=== PATIENT | female | born 1960 | race African-American/Black ===

== ENCOUNTER 2016-07-09 14:04 | Inpatient (IN) | payer MEDICAID ==
[~2016-07-09] VITALS: Ht 160 cm; Wt 45.4 kg
[~2016-07-09 14:04] MED LIST: ACETAMINOPHEN325 MG NG; AMPICILLIN TRI500 MG PO; APAP325 MG PO; BISCOLAX10 MG/SUPP RC; CELEXA20 MG PO; CLEOCIN HCL300 MG PO; COLACE100 MG PO; DIFLUCAN200 MG PO; FLAGYL500 MG PO; FLORANEX / LACT1 TAB PO; IMODIUM A-D2 MG PO; KEFLEX500 MG PO; LEVAQUIN500 MG PO; MACROBID100 MG PO; MEGACE400 MG/10 PO; MICRO-K10 MEQ PO; MOTRIN400 MG PO; NORCO 5/325 TAB1 TA1 PO; NYSTATIN60 GM TP; OXYCODONE HCL10 MG; OXYCODONE HCL5 MG PO; PHENERGAN DM SYR5 ML PO; SLOW-MAG 64 MG64 MG PO; SOMA250 MG PO; TEFLARO600 MG IV; VENTOLIN HFA18 GM INH; XANAX0.5 MG PO; XOPENEX 1.1.25 MG/3 UPD
[2016-07-09] MEDS ORDERED: ZANAFLEX4 MG PO (21:46)
[2016-07-09] MEDS ORDERED: ZESTRIL40 MG PO (21:47)
[2016-07-09] MEDS ORDERED: BACLOFEN10 MG PO (21:49)
[2016-07-09] MEDS ORDERED: MEDROL DOSE PACK4 MG PO (21:49)
[2016-07-09] MEDS ORDERED: PROMETHAZINE W473 M1 PO (22:00)
[2016-07-09 23:34] VITALS: BP 102/773; BMI 17.7
--- NOTE | 2016-07-10 03:51 | NUR ---
ASSESSED AT THE TIME OF ADMIT TO FLOOR. FAMILY CAME UP TO SEE HER TUCKED IN AND THEN LEFT. SHE IS ALERT AND ORIENTED, ABLE TO VERBALIZE NEEDS. IV FLUIDS STARTED ORDERED. AND GROUNDS MAINTENANCE SUPERVISOR NOTIFIED OF NEED FOR TELEMETRY SOON ONE IS AVAIBLE. SKIN LOOKS GOOD EXCEPT FOR ONE AREA TO THE COCCYX THAT LOOKS HEALED FROM OLD BREAKDWON. ALL MEDS WERE GONE OVER AND SHE WAS OFFERED SCDS BUT TURNED THEN DOWN. SHE IS A PARAPLEGIC AMD WE ARE ASSISTING HER WITH TURNING AND COMFORT. SHE IS ABLE TO MOVE QUIET A BIT ON HER OWN. THE BED IS LOW, RAILS UP X'S 2 WITH THE CALL LIGHT AT HAND.
[2016-07-10 05:00] VITALS: BP 91/59
--- NOTE | 2016-07-10 08:15 | NUR ---
ASSESSMENT PER FLOW SHEET.PT WITHOUT DISTRESS.CALL LIGHT IN REACH.
[2016-07-10 08:34] VITALS: BP 97/62
--- NOTE | 2016-07-10 12:00 | NUR ---
REMAINS WITHOUT NEEDS,WITHOUT DISTRESS.CALL LIGHT IN REACH
[2016-07-10 12:21] VITALS: BP 110/74
[2016-07-10 13:13] LABS: BASOPHILS 0.2 % (0.0-2.0); EOSINOPHILS 0.3 % (0-7); HEMATOCRIT 34.9 % (36.0-48.0); HEMOGLOBIN 11.4 g/dL (12-16); IMMATURE GRANULOCYTES 0.7 % (0-5); LYMPHOCYTES 20.7 % (15-50); MCH 29.2 pg (26.0-34.0); MCHC 32.7 g/dL (31.0-37.0); MCV 89.3 fL (80.0-100.0); MEAN PLATELET VOLUME 9.9 fL (7.4-10.4); MONOCYTES 8.1 % (2-11); RBC 3.91 10x6/uL (4.00-5.40); RDW 15.3 % (11.5-14.5)
[2016-07-10 13:14] LABS: PLATELET COUNT 384 10x3/uL (130-400)
[2016-07-10 13:33] LABS: ALBUMIN 2.5 g/dL (3.4-5.0); ANION GAP 12.5 mmol/L (8-16); BILIRUBIN - TOTAL 0.31 mg/dL (0.2-1.3); CALCIUM 9.2 mg/dL (8.5-10.1); CARBON DIOXIDE 28.3 mmol/L (21.0-32.0); CREATININE - SERUM 0.9 mg/dL (0.6-1.3); POTASSIUM - SERUM 3.8 mmol/L (3.5-5.1); PROTEIN - SERUM 8.6 g/dL (6.4-8.2)
[2016-07-10 13:40] VITALS: Ht 160 cm; Wt 45.4 kg
--- NOTE | 2016-07-10 14:59 | NUR ---
PT TURNED TO CLEAN UP INCONT OF URINE. PRESSURE ULCER NOTED WITH OPEN AREA. PT STATES ATHIS IS LEFT OVER FROM OLD ULCER. WOUND CARE [place] CALLED.
--- NOTE | 2016-07-10 15:00 | NUR ---
WOUND CARE CONSULT: NOTED AN OLD STAGE 3 PRESSURE INJURY TO COCCYX. MEASURES 1CM X 1CM X 1CM. WOUND EDGES ARE WHITE AND ROLLED. WOUND BED IS PINK AND YELLOW. THERE IS NO ODOR. RECOMMEND LOOSELY PACKING WITH 1/4" PACKING DAMPENED WITH NORMAL SALINE. ALSO WOULD RECOMMEND AIR OVERLAY MATTRESS. WOUND CARE WILL CONTINUE TO MONITOR.
[2016-07-10 15:10] VITALS: BP 114/72
--- NOTE | 2016-07-10 17:00 | NUR ---
IV TENDER,DCD WITH CATH INTACT.SOME SWELLING AND MILD REDNESS NOTED.
--- NOTE | 2016-07-10 18:08 | NUR ---
REMAINS WITHOUT NEEDS,WITHOUT DISTRESS.CONT PLAN OF CARE
--- NOTE | 2016-07-10 18:30 | NUR ---
IV RESITED TO RIGHT HAND X1 STICK USING ASEPTIC TECH.TOLERATED WELL.
[2016-07-10 20:00] VITALS: BP 116/69
--- NOTE | 2016-07-10 20:07 | NUR ---
AWAKE ALERT. ORIENTED. NO COMPLAINTS VOICED. IV INFUSING TO RIGHT ARM WIHTOUT REDNESS OR EDEMA.CL IN REACH.
[2016-07-11] VITALS: BP 125/62
--- NOTE | 2016-07-11 01:15 | NUR ---
RESTING WITH EYES CLOSED, RESP WITH EASE, NO ACUTE DISTRESS NOTED, FALL PRECAUTIONS IN PLACE, CL IN REACH
--- NOTE | 2016-07-11 02:07 | NUR ---
RESTING QUIETLY. NO DISTRESS NOTED. CL IN REACH.
[2016-07-11 04:00] VITALS: BP 126/74
--- NOTE | 2016-07-11 05:07 | NUR ---
PT IS RESTING QUIET WITH NO DISTRESS NOTED. EASY RESPIRATIONS. SHE IS A PARAPLEGIC AND WE ARE TURNING HER PER PROTOCOL ALTHOUGH SHE CAN TURN HERSSELF MOST OF THE TIME. NO 02 NOTED AND IV SITE IS INFUSING ORDERED.
[2016-07-11 05:44] LABS: BASOPHILS 0.1 % (0.0-2.0); EOSINOPHILS 0.4 % (0-7); HEMOGLOBIN 10.3 g/dL (12-16); IMMATURE GRANULOCYTES 0.6 % (0-5); LYMPHOCYTES 15.4 % (15-50); MCH 28.8 pg (26.0-34.0); MCHC 32.2 g/dL (31.0-37.0); MCV 89.4 fL (80.0-100.0); MEAN PLATELET VOLUME 9.9 fL (7.4-10.4); MONOCYTES 7.9 % (2-11); NEUTROPHILS 75.6 % (40-80); PLATELET COUNT 426 10x3/uL (130-400); RBC 3.58 10x6/uL (4.00-5.40); RDW 15.2 % (11.5-14.5); WBC 11.8 10x3/uL (4.8-10.8)
--- NOTE | 2016-07-11 05:53 | NUR ---
AWAKE WITH NO COMPLAINTS. CL ILN REACH.
[2016-07-11 06:09] LABS: ALBUMIN 2.2 g/dL (3.4-5.0); ALKALINE PHOSPHATASE 100 U/L (46-116); ALT (SGPT) 28 U/L (10-68); BILIRUBIN - TOTAL 0.14 mg/dL (0.2-1.3); CALC OSMOLALITY 279 mosm/kg (275-300); CALCIUM 8.5 mg/dL (8.5-10.1); CARBON DIOXIDE 29.2 mmol/L (21.0-32.0); CHLORIDE - SERUM 102 mmol/L (98-107); CREATININE - SERUM 0.7 mg/dL (0.6-1.3); GLUCOSE 109 mg/dL (74-106); POTASSIUM - SERUM 4.3 mmol/L (3.5-5.1); PROTEIN - SERUM 6.8 g/dL (6.4-8.2); SODIUM 139 mmol/L (136-145); eGFR NON AFRICAN AMERICAN > 90 mL/min (90-120)
[2016-07-11 06:13] LABS: UREA NITROGEN 15 mg/dL (7-18)
--- NOTE | 2016-07-11 07:20 | NUR ---
PT SITTING IN BED TAKING A BREATHING TREATMENT, NO COMPLAINTS AT THIS TIME, BED LOWEST POSITION, CALL LIGHT IN REACH, WILL CONTINUE PLAN OF CARE
[2016-07-11 08:13] VITALS: BP 123/81
--- NOTE | 2016-07-11 08:47 | NUR ---
PT SEEN FOR ROCKET PROPELLANT PLANT SUPERVISOR NOTE. NO COMPLAINTS AT PRESENT. STATES BREATHING IS BETTER. LUNGS DIMINISHED BUT CLEAR. STATES WILL HAVE CAREGIVER BRING SELF CATHETERS FROM HOME AND WE WILL PROVIDE ASSISTANCE/URINAL FOR CATHERIZATION. DRESSING NOTED TO COCCYX-WILL CHANGE THIS AM. CALL LIGHT IN REACH
--- NOTE | 2016-07-11 12:16 | NUR ---
PT RESTING IN BED, NO COMPLAINTS, BED LOWEST POSITION, CALL LIGHT IN REACH, WILL CONTINUE TO MONITOR
[2016-07-11 12:26] VITALS: BP 93/55
[2016-07-11 15:24] LABS: APPEARANCE CLEAR (CLEAR); BACTERIA FEW /hpf (NONE SEEN); BILIRUBIN NEGATIVE (NEGATIVE); COLOR YELLOW (YELLOW); EPITHELIAL CELLS 0-5 /hpf (0-5); GLUCOSE NEGATIVE (NEGATIVE); KETONE NEGATIVE (NEGATIVE); LEUKOCYTE ESTERASE NEGATIVE (NEGATIVE); NITRITE NEGATIVE (NEGATIVE); PROTEIN NEGATIVE (NEGATIVE); RED CELLS - URINE 0-5 /hpf (0-5); UROBILINOGEN NORMAL (NORMAL); WHITE CELLS - URINE 0-5 /hpf (0-5)
[2016-07-11 16:02] VITALS: BP 165/92
--- NOTE | 2016-07-11 19:10 | NUR ---
OT NOTE: PT COMPLETED GROOMING TASK WITH MIN A. PT COMPLETED BED MOB WITH MIN A. PT ATTEMPTED FM COORDINATION AXS THANK YOU, DANAY NAJERA/Ana Paula
--- NOTE | 2016-07-11 20:00 | NUR ---
PT IS RESTING IN BED WITH EYES OPEN. ALERT AND ORIENTED X 3. PT DENIES ANY PAIN OR DISCOMFORT AT THIS TIME. NO SOB NOTED. PT IS VERY FRIENDLY AND COOPERATIVE. IV INFUSING TO RFA WITHOUT DIFFICULTY. NO REDNESS OR EDEMA NOTED AT THE INSERTION SITE. PT IS A PARAPLEGIC. DENIES NEEDS AT THIS TIME. BOB CATH PATENT AND DRAINING TO A GRAVITY BAG. DRESSING TO BUTTOCKS IS CDI. NO DRAINAGE NOTED. SR'S ARE UP X 3 IN BED. CALL LIGHT AND BEDSIDE TABLE ARE WITHIN EASY REACH.
--- NOTE | 2016-07-11 22:18 | NUR ---
PT IS RESTING IN BED WITH EYES CLOSED. RESPS ARE EVEN AND UNLABORED. NO ACUTE DISTRESS NOTED.
--- NOTE | 2016-07-11 23:58 | NUR ---
PT IS RESTING IN BED WITH EYES CLOSED.
--- NOTE | 2016-07-12 02:34 | NUR ---
PT RESTING IN BED WITH EYES CLOSED. NO DISTRESS NOTED.
--- NOTE | 2016-07-12 04:38 | NUR ---
PT IS RESTING QUIETLY IN BED WITH EYES CLOSED. NO DISTRESS NOTED.
[2016-07-12 06:43] LABS: BASOPHILS 0.3 % (0.0-2.0); EOSINOPHILS 0.5 % (0-7); HEMATOCRIT 32.7 % (36.0-48.0); HEMOGLOBIN 10.2 g/dL (12-16); IMMATURE GRANULOCYTES 0.5 % (0-5); LYMPHOCYTES 22.5 % (15-50); MCH 28.3 pg (26.0-34.0); MCHC 31.2 g/dL (31.0-37.0); MCV 90.8 fL (80.0-100.0); MEAN PLATELET VOLUME 9.8 fL (7.4-10.4); MONOCYTES 7.6 % (2-11); NEUTROPHILS 68.6 % (40-80); PLATELET COUNT 447 10x3/uL (130-400); RDW 15.5 % (11.5-14.5)
[2016-07-12 06:47] LABS: WBC 7.9 10x3/uL (4.8-10.8)
[2016-07-12 07:05] LABS: ALBUMIN 2.3 g/dL (3.4-5.0); ALKALINE PHOSPHATASE 87 U/L (46-116); ALT (SGPT) 24 U/L (10-68); CALCIUM 9.2 mg/dL (8.5-10.1); CARBON DIOXIDE 29.4 mmol/L (21.0-32.0); CHLORIDE - SERUM 103 mmol/L (98-107); CREATININE - SERUM 0.6 mg/dL (0.6-1.3); GLUCOSE 103 mg/dL (74-106); PROTEIN - SERUM 7.2 g/dL (6.4-8.2); SODIUM 140 mmol/L (136-145); eGFR NON AFRICAN AMERICAN > 90 mL/min (90-120)
[2016-07-12 07:06] LABS: CALC OSMOLALITY 276 mosm/kg (275-300); POTASSIUM - SERUM 3.6 mmol/L (3.5-5.1); UREA NITROGEN 6 mg/dL (7-18)
--- NOTE | 2016-07-12 07:15 | NUR ---
PATIENT IN BED WITH IV INTACT. NO COMPLAINTS. EYES CLOSED RESTING QUIETLY. CALL LIGHT WITHIN REACH.
--- NOTE | 2016-07-12 07:20 | NUR ---
PT RESTING IN BED, REQUEST PAIN MEDICATION, NO OTHER COMPLAINTS, BED LOWEST POSITION, CALL LIGHT IN REACH, SIDE RAILS UP X2, PT ASSESSMENT COMPLETE, WILL CONTINUE TO MONITOR
[2016-07-12 10:36] VITALS: BP 143/89
[2016-07-12 11:32] VITALS: BP 100/65
[2016-07-12 15:12] VITALS: BP 100/89
--- NOTE | 2016-07-12 18:09 | NUR ---
PT RESTING IN BED, NO COMPLAINTS AT THIS TIME, BED LOWEST POSITION, CALL LIGHT IN REACH, SIDE RAILS UP X2, WILL CONTINUE TO MONITOR
--- NOTE | 2016-07-12 19:30 | NUR ---
REC'D IN BED AWAKE AND ALERT. RESP EVEN AND UNLABORED WITH NO DISTRESS NOTED. CAN EXPRESS NEEDS AND WANTS. NO C/O NOTED OR VOICED. ASSESSMENT COMPLETED. C/L IN REACH AT BEDSIDE.
[2016-07-12 21:58] VITALS: BP 171/93
--- NOTE | 2016-07-13 02:15 | NUR ---
RESTING WITH EYES CLOSED, RESP WITH EASE, NO DISTRESS NOTED, FALL PRECAUTIONS IN PLACE, CL IN REACH
--- NOTE | 2016-07-13 03:40 | NUR ---
RESTING WELL AT THIS TIME. NO C/O NOTED OR VOICED. C/L IN REACH AT BEDSIDE.
[2016-07-13 05:00] VITALS: BP 89/64
[2016-07-13 05:55] LABS: BASOPHILS 0.3 % (0.0-2.0); EOSINOPHILS 0.9 % (0-7); HEMATOCRIT 39.1 % (36.0-48.0); IMMATURE GRANULOCYTES 0.4 % (0-5); LYMPHOCYTES 26.1 % (15-50); MCH 28.7 pg (26.0-34.0); MCHC 31.7 g/dL (31.0-37.0); MCV 90.5 fL (80.0-100.0); MEAN PLATELET VOLUME 9.7 fL (7.4-10.4); MONOCYTES 7.3 % (2-11); PLATELET COUNT 536 10x3/uL (130-400); RBC 4.32 10x6/uL (4.00-5.40); RDW 15.4 % (11.5-14.5); WBC 9.2 10x3/uL (4.8-10.8)
[2016-07-13 05:56] LABS: HEMOGLOBIN 12.4 g/dL (12-16)
[2016-07-13 06:32] LABS: ALKALINE PHOSPHATASE 101 U/L (46-116); BILIRUBIN - TOTAL 0.22 mg/dL (0.2-1.3); CALC OSMOLALITY 278 mosm/kg (275-300); CALCIUM 10.3 mg/dL (8.5-10.1); CARBON DIOXIDE 29.5 mmol/L (21.0-32.0); CHLORIDE - SERUM 101 mmol/L (98-107); CREATININE - SERUM 0.6 mg/dL (0.6-1.3); GLUCOSE 103 mg/dL (74-106); PROTEIN - SERUM 8.9 g/dL (6.4-8.2); SODIUM 141 mmol/L (136-145); UREA NITROGEN 7 mg/dL (7-18); eGFR NON AFRICAN AMERICAN > 90 mL/min (90-120)
[2016-07-13 06:34] LABS: ALT (SGPT) 36 U/L (10-68); POTASSIUM - SERUM 4.5 mmol/L (3.5-5.1)
--- NOTE | 2016-07-13 07:40 | NUR ---
PT RESTING IN BED, CAN EXPRESS CARES AND CONCERNS, NO CURRENT NEEDS, ASSESSMENT COMPLETE, CALL LIGHT IN REACH, WILL CONTINUE TO MONITOR
[2016-07-13 09:01] VITALS: BP 130/82
[2016-07-13 12:06] VITALS: BP 166/91
--- NOTE | 2016-07-13 13:29 | NUR ---
PAIN LEVEL AT 7, NORCO GIVEN PER MAR, NO OTHER COMPLAINTS OR NEEDS, WILL CONTINUE TO MONITOR.
--- NOTE | 2016-07-13 16:00 | NUR ---
QUIET IN ROOM AT PRESENT DENIES ANY NEEDS AT THIS TIME RESP EVEN AND UNLABORED AT PRESENT.
[2016-07-13 16:26] VITALS: BP 138/92
[2016-07-13 19:00] VITALS: BP 101/57
--- NOTE | 2016-07-13 19:36 | NUR ---
REC'D IN BED LYING ON RIGHT SIDE AWAKE AND ALERT. RESP EVEN AND UNLABORED WITH O2 IN USE VIA N/C. CAN EXPRESS NEEDS AND WANTS. NO C/O NOTED OR VOICED AT THIS TIME. TURN AND REPOSITION SELF AB JESI. REMAIN ON OVERLAY MATTRESS. ASSESSMENT COMPLETED. C/L IN REACH AT BEDSIDE.
[2016-07-14] VITALS: BP 105/74
--- NOTE | 2016-07-14 02:00 | NUR ---
PT IN BED WITH NO DISTRESS. RESPIRATIONS EVEN AND UNLABORED. RIGHT UPPER ARM IV WITH FLUIDS RUNNING PER ORDER. BOB DRAINING URINE BY GRAVITY. 1ST STEP OVERLAY ON BED. TELEMETRY ON. PLEXI BOOTS ON. PT HAS DRESSING TO COCCYX C/D/I. SIDE RAILS ARE UP X 2. BED IS LOW. CALL LIGHT IN REACH.
[2016-07-14 04:00] VITALS: BP 135/85
[2016-07-14 05:40] LABS: BASOPHILS 0.3 % (0.0-2.0); EOSINOPHILS 1.9 % (0-7); HEMATOCRIT 35.4 % (36.0-48.0); HEMOGLOBIN 11.4 g/dL (12-16); IMMATURE GRANULOCYTES 0.5 % (0-5); LYMPHOCYTES 31.9 % (15-50); MCH 28.9 pg (26.0-34.0); MCHC 32.2 g/dL (31.0-37.0); MCV 89.8 fL (80.0-100.0); MEAN PLATELET VOLUME 9.6 fL (7.4-10.4); MONOCYTES 8.8 % (2-11); NEUTROPHILS 56.6 % (40-80); PLATELET COUNT 506 10x3/uL (130-400); RBC 3.94 10x6/uL (4.00-5.40); RDW 15.5 % (11.5-14.5); WBC 7.5 10x3/uL (4.8-10.8)
[2016-07-14 06:03] LABS: ALBUMIN 2.6 g/dL (3.4-5.0); ALKALINE PHOSPHATASE 83 U/L (46-116); ALT (SGPT) 38 U/L (10-68); BILIRUBIN - TOTAL 0.18 mg/dL (0.2-1.3); CALC OSMOLALITY 277 mosm/kg (275-300); CALCIUM 9.3 mg/dL (8.5-10.1); CARBON DIOXIDE 27.1 mmol/L (21.0-32.0); CHLORIDE - SERUM 102 mmol/L (98-107); CREATININE - SERUM 0.6 mg/dL (0.6-1.3); GLUCOSE 102 mg/dL (74-106); POTASSIUM - SERUM 4.3 mmol/L (3.5-5.1); PROTEIN - SERUM 7.6 g/dL (6.4-8.2); SODIUM 140 mmol/L (136-145); eGFR NON AFRICAN AMERICAN > 90 mL/min (90-120)
[2016-07-14 06:26] LABS: UREA NITROGEN 11 mg/dL (7-18)
--- NOTE | 2016-07-14 07:40 | NUR ---
DENIES NEEDS AT PRESENT TIME. CALL LIGHT IN REACH. ALERT AND ORIENTED X4. RESPIRATIONS EVEN AND NON LABORED. WILL CONTINUE WITH PLAN OF CARE.
[2016-07-14 08:18] VITALS: BP 124/78
--- NOTE | 2016-07-14 09:05 | NUR ---
Patient Name: GAGE URRUTIA Admission Status: ER Accout number: [id number] Admission Date: 07-10-2016 : 1960 Admission Diagnosis: Attending: LASHAY Current LOS: 4 Anticipated DC Date: 07-16-2016 Planned Disposition: Home or Self Care Primary Insurance: MEDICAID [place] Discharge Planning Comments: CM MET WITH PATIENT REGARDING D/C NEEDS AND PLANS. PATIENT STATED SHE HAS A RAMP TO ENTER HER HOME AND NO STAIRS INSIDE. PATIENT STATED HER CAREGIVER WILL BE DRIVING HER HOME AT DISCHARGE. PATIENT STATED SHE IS INDEPENDENT WITH HER CARE AND HAS A TRANSFER BOARD, WHEELCHAIR, SHOWER CHAIR, AND NEBULIZER AT HOME. 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 PATIENTS PCP IS DR. ELLIS AND HER PHARMACY IS [facility] [address] [facility]. CM WILL CONTINUE TO FOLLOW PATIENT WITH D/C NEEDS AND PLANS. PCP DR[facility] [address] [facility] [phone] MARIE (SON) [phone] Sheet Sewer: Senia Warner Is the patient Alert and Oriented? Yes 0 * How many steps to enter\exit or inside your home? RAMP 0 * PCP DR. ELLIS 0 * [facility] * Preadmission Environment Home with Family 0 * ADLs Independent 0 * Equipment Nebulizer Shower Chair Wheelchair 0 * Other Equipment TRANSFER BOARD 0 * List name and contact numbers for known caregivers / representatives who currently or will assist patient after discharge: MARIE (SON) [phone] 0 * Community resources currently utilized Private Duty Care 0 * Additional services required to return to the preadmission environment? Yes 0 * Can the patient safely return to the preadmission environment? Yes 0 * Has this patient been hospitalized within the prior 30 days at any hospital? No 0 Grand Total: 0
--- NOTE | 2016-07-14 09:30 | NUR ---
SCHEDULED MEDICATIONS ADMINISTERED AT THIS TIME WELL PRN NORCO PER ORDER FOR PAIN 01/25. ASSESSMENT PERFORMED PER FLOWSHEET. CALL LIGHT IN REACH. 1ST STEP OVERLAY MATRESS IN USE. DENIES NEEDS AT PRESENT. WILL CONTINUE WITH PLAN OF CARE.
--- NOTE | 2016-07-14 12:25 | NUR ---
PT COMPLETED BOWEL REGIMEN AT THIS TIME. OXYGEN SATURATION 98% ON ROOM AIR. PT REQUESTING TO HAVE CATHETER REMOVED BEFORE BEING DISCHARGED HOME. CALL LIGHT IN REACH, STATES SHE HAS ALREADY HAD HER FLU AND PNEUMONIA VACCINES.
[2016-07-14 12:27] VITALS: BP 151/91
[2016-07-14] MEDS ORDERED: LEVAQUIN500 MG PO (13:19)
--- NOTE | 2016-07-14 13:20 | NUR ---
CM REASSESSMENT NOTE: PATIENT IS DISCHARGING HOME TODAY AND PATIENT STATED HER CAR STOWER WILL DRIVE HER HOME. PATIENT SIGNED THE [place] FORM FOR [facility] AND REFERRAL HAS BEEN SENT. [facility] IS AWARE OF PATIENTS DISCHARGE TODAY.
--- NOTE | 2016-07-14 14:20 | NUR ---
PRN NORCO-5 2 TABS ADMINISTERED PER ORDER. BOB CATHETER D/C WITH CATH TIP INTACT. WOUND CARE PROVIDED TO STAGE II COCCYX. AWAITING RIDE TO D/C, WILL CONTINUE WITH PLAN OF CARE.
--- NOTE | 2016-07-14 15:10 | NUR ---
D/C HOME WITH SON AT THIS TIME. DENIES QUESTIONS OR CONCERNS. WILL CONTINUE WITH PLAN OF CARE.
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
--- NOTE | 2016-08-25 09:38 | DS ---
PATIENT:GAGE URRUTIA :56 MEDICAL RECORD: [id number] DISCHARGE SUMMARY ADMISSION DATE: 07/10/16 DISCHARGE DATE: 07/14/16 This is a discharge dated 07/14/2016 from the inpatient hospital. DISCHARGE DIAGNOSES: 1. Left lower lobe pneumonia, community-acquired. 2. Acute exacerbation of chronic obstructive pulmonary disease. 3. Pleural effusion. 4. Tobacco abuse. 5. Paraplegia. 6. Hypertension. 7. Hyperlipidemia. 8. Asthma. CONSULTS THIS HOSPITALIZATION: Pulmonary with Dr. Bolden. HOSPITAL COURSE: Full H&P is located elsewhere on the chart on this 56-year-old female, who was admitted with complaints of shortness of breath, cough and fever. Imaging was consistent with a left lower lobe pneumonia. Pulmonary was consulted. She was seen by Dr. Bolden. She was started on nebulized medications and continued on her inhalers from home. She was started on antibiotics with Rocephin and azithromycin. Cultures were done. She had an incentive spirometer and flutter valve for secretion clearance. Imaging was monitored with labs during her hospital stay. Electrolytes were managed by protocol. She was hemodynamically stable with improvement in the left lower lobe pneumonia, symptoms improved. She was considered stable for discharge on 07/14/2016. DISCHARGE MEDICATIONS: As per discharge medication reconciliation. DISCHARGE DISPOSITION: The patient is discharged home. She will continue her current diet and level of activity. She will follow up with primary care in 1 week. She will have home health for group home care and wound care. She will follow up with pulmonary in 4 weeks with a chest x-ray. a Vicente catheter was discontinued prior to discharge. At least 30 minutes was spent in this discharge activity. TRANSINT:[id number] Voice Confirmation ID: [id number] DOCUMENT ID: [id number] Dictated By: RAFAEL ADLER I have interviewed/examined the above patient and agree with these documented findings. MARY VAZQUEZ MD at 0938 at 0939 CC: [id number] DICTATION DATE: 08/23/16 1115 MACADAM RAKER: 08/23/162016 DIS IN 07/14/16 [place] [id number]
== END 2016-07-14 15:10 | disposition home health service (06) | DRG 190 ==
LOC: D.ER 14:04 → OBSVTIME 18:26 → D.MS 18:26
PROVIDERS: ADMIT Family Medicine
DX: J44.0 Chronic obstructive pulmonary disease with (acute) lower respiratory infection (principal); J18.9 Pneumonia, unspecified organism; J90 Pleural effusion, not elsewhere classified; F17.203 Nicotine dependence unspecified, with withdrawal; J44.1 Chronic obstructive pulmonary disease with (acute) exacerbation; M62.3 Immobility syndrome (paraplegic); I10 Essential (primary) hypertension; J45.909 Unspecified asthma, uncomplicated; E78.5 Hyperlipidemia, unspecified

== ENCOUNTER 2016-11-21 10:38 | Emergency (ER) | payer MEDICAID ==
[2016-07-10 13:40] VITALS: BMI 17.7
[~2016-11-21 10:38] MED LIST changes: +BACLOFEN10 MG PO; +MEDROL DOSE PACK4 MG PO; +PROMETHAZINE W473 M1 PO; +ZANAFLEX4 MG PO; +ZESTRIL40 MG PO
[2016-11-21 11:43] LABS: BASOPHILS 0.2 % (0-2); EOSINOPHILS 3.5 % (0-7); HEMATOCRIT 42.3 % (36.0-48.0); IMMATURE GRANULOCYTES 0.2 % (0-5); LYMPHOCYTES 38.5 % (15-50); MCH 29.5 pg (26.0-34.0); MCHC 33.1 g/dL (31.0-37.0); MCV 89.2 fL (80.0-100.0); MEAN PLATELET VOLUME 10.9 fL (7.4-10.4); MONOCYTES 6.4 % (2-11); NEUTROPHILS 51.2 % (40-80); RBC 4.74 10x6/uL (4.00-5.40); RDW 14.1 % (11.5-14.5); WBC 6.5 10x3/uL (4.8-10.8)
[2016-11-21 11:53] LABS: ALBUMIN 3.9 g/dL (3.4-5.0); ALKALINE PHOSPHATASE 86 U/L (46-116); ALT (SGPT) 22 U/L (10-68); CALC OSMOLALITY 277 mosm/kg (275-300); CALCIUM 9.4 mg/dL (8.5-10.1); CARBON DIOXIDE 31.6 mmol/L (21.0-32.0); CHLORIDE - SERUM 102 mmol/L (98-107); CREATININE - SERUM 0.6 mg/dL (0.6-1.3); GLUCOSE 92 mg/dL (74-106); POTASSIUM - SERUM 3.6 mmol/L (3.5-5.1); PROTEIN - SERUM 7.7 g/dL (6.4-8.2); SODIUM 140 mmol/L (136-145); UREA NITROGEN 11 mg/dL (7-18); eGFR NON AFRICAN AMERICAN > 90 mL/min (90-120)
[2016-11-21 11:55] LABS: LIPASE 133 U/L (73-393); PLATELET COUNT 221 10x3/uL (130-400)
[2016-11-21 11:59] LABS: TROPONIN-I < 0.017 ng/mL (0.000-0.060)
[2016-11-21 12:18] LABS: APPEARANCE HAZY (CLEAR); BACTERIA FEW /hpf (NONE SEEN); BILIRUBIN NEGATIVE (NEGATIVE); COLOR YELLOW (YELLOW); EPITHELIAL CELLS RARE /hpf (0-5); GLUCOSE NEGATIVE (NEGATIVE); KETONE NEGATIVE (NEGATIVE); LEUKOCYTE ESTERASE NEGATIVE (NEGATIVE); NITRITE NEGATIVE (NEGATIVE); PROTEIN NEGATIVE (NEGATIVE); UROBILINOGEN NORMAL (NORMAL)
== END 2016-11-21 17:29 | disposition home or self-care (01) ==
LOC: D.ER 10:38
PROVIDERS: Emergency Medicine
DX: R10.9 Unspecified abdominal pain (principal); K59.00 Constipation, unspecified; J44.9 Chronic obstructive pulmonary disease, unspecified; F17.200 Nicotine dependence, unspecified, uncomplicated

== ENCOUNTER 2017-02-11 18:36 | Emergency (ER) | payer MEDICAID ==
[2016-07-10 13:40] VITALS: BMI 17.7
[2017-02-11 20:05] LABS: APPEARANCE CLOUDY (CLEAR); BILIRUBIN NEGATIVE (NEGATIVE); COLOR YELLOW (YELLOW); GLUCOSE NEGATIVE (NEGATIVE); KETONE NEGATIVE (NEGATIVE); LEUKOCYTE ESTERASE TRACE (NEGATIVE); NITRITE POSITIVE (NEGATIVE); PROTEIN NEGATIVE (NEGATIVE); SPECIFIC GRAVITY 1.015 (1.005-1.020); UROBILINOGEN NORMAL (NORMAL)
[2017-02-11 20:06] LABS: BACTERIA MANY /hpf (NONE SEEN); RED CELLS - URINE 0-5 /hpf (0-5); WHITE CELLS - URINE 0-5 /hpf (0-5)
== END 2017-02-11 21:44 | disposition home or self-care (01) ==
LOC: D.ER 18:36
PROVIDERS: Emergency Medicine
DX: N39.0 Urinary tract infection, site not specified (principal); G82.20 Paraplegia, unspecified; F17.200 Nicotine dependence, unspecified, uncomplicated

== ENCOUNTER 2017-02-27 19:09 | Emergency (ER) | payer MEDICAID ==
[2016-07-10 13:40] VITALS: BMI 17.7
[~2017-02-27 19:09] MED LIST changes: +K-TAB10 MEQ PO; -MICRO-K10 MEQ PO
[2017-02-27 20:12] LABS: BASOPHILS 0.5 % (0-2); HEMATOCRIT 45.6 % (36.0-48.0); IMMATURE GRANULOCYTES 0.2 % (0-5); LYMPHOCYTES 46.3 % (15-50); MCH 30.5 pg (26.0-34.0); MCHC 32.9 g/dL (31.0-37.0); MCV 92.9 fL (80.0-100.0); MEAN PLATELET VOLUME 11.4 fL (7.4-10.4); MONOCYTES 9.3 % (2-11); NEUTROPHILS 37.7 % (40-80); PLATELET COUNT 228 10x3/uL (130-400); RBC 4.91 10x6/uL (4.00-5.40); WBC 6.1 10x3/uL (4.8-10.8)
[2017-02-27 20:19] LABS: APPEARANCE CLEAR (CLEAR); BILIRUBIN NEGATIVE (NEGATIVE); COLOR STRAW (YELLOW); GLUCOSE NEGATIVE (NEGATIVE); KETONE NEGATIVE (NEGATIVE); NITRITE NEGATIVE (NEGATIVE); PROTEIN NEGATIVE (NEGATIVE); SPECIFIC GRAVITY 1.005 (1.005-1.020); UROBILINOGEN NORMAL (NORMAL)
[2017-02-27 20:20] LABS: ALKALINE PHOSPHATASE 75 U/L (46-116); ALT (SGPT) 24 U/L (10-68); AMYLASE - SERUM 62 U/L (25-115); CALC OSMOLALITY 281 mosm/kg (275-300); CALCIUM 9.6 mg/dL (8.5-10.1); CARBON DIOXIDE 30.7 mmol/L (21.0-32.0); CHLORIDE - SERUM 102 mmol/L (98-107); CREATININE - SERUM 0.8 mg/dL (0.6-1.3); GLUCOSE 95 mg/dL (74-106); LIPASE 136 U/L (73-393); POTASSIUM - SERUM 4.2 mmol/L (3.5-5.1); SODIUM 140 mmol/L (136-145); UREA NITROGEN 21 mg/dL (7-18); eGFR NON AFRICAN AMERICAN 78 mL/min (90-120)
[2017-02-27 20:23] LABS: BACTERIA FEW /hpf (NONE SEEN); EPITHELIAL CELLS 0-5 /hpf (0-5)
== END 2017-02-27 21:35 | disposition home or self-care (01) ==
LOC: D.ER 19:09
PROVIDERS: Family Medicine
DX: N39.0 Urinary tract infection, site not specified (principal)

== ENCOUNTER 2017-03-04 10:26 | Day surgery (SDC) | payer MEDICAID ==
[2017-03-04 11:36] VITALS: BP 134/89; BMI 21.3
[2017-03-04 12:53] LABS: HEMATOCRIT 39.1 % (36.0-48.0); MCH 30.2 pg (26.0-34.0); MCHC 33.2 g/dL (31.0-37.0); MCV 90.9 fL (80.0-100.0); RBC 4.3 10x6/uL (4.00-5.40); RDW 13.7 % (11.5-14.5)
[2017-03-04 13:13] LABS: CALC OSMOLALITY 281 mosm/kg (275-300); CALCIUM 9.5 mg/dL (8.5-10.1); CARBON DIOXIDE 29.3 mmol/L (21.0-32.0); CHLORIDE - SERUM 103 mmol/L (98-107); CREATININE - SERUM 0.5 mg/dL (0.6-1.3); GLUCOSE 102 mg/dL (74-106); POTASSIUM - SERUM 3.2 mmol/L (3.5-5.1); SODIUM 141 mmol/L (136-145); UREA NITROGEN 15 mg/dL (7-18); eGFR NON AFRICAN AMERICAN > 90 mL/min (90-120)
--- NOTE | 2017-03-04 14:11 | NUR ---
POOR PREP WENT TO ASCENDING COLON DID NOT GO TO [facility] WILL CHARGE FOR COLONOSCOPY WITH REDUCTION PER DR. MUHAMMAD.
--- NOTE | 2017-03-04 15:29 | NUR ---
1500--IV DC'D, PT DRESSING WITH ASSISTANCE. MARCELLE VERONICA [id number]--DISCHARGE INSTRUCTIONS GIVEN, PT VERBALIZES UNDERSTANDING. PT OFF UNIT VIA WC WITH SON. MARCELLE VERONICA
--- NOTE | 2017-03-06 13:53 | OP ---
PATIENT NAME: GAGE URRUTIA MEDICAL RECORD: [id number] :56 LOCATION:[facility] ADMISSION DATE: SURGEON: GERMANIA MUHAMMAD DO DATE OF OPERATION: 03/04/2017 PROCEDURE: Colonoscopy. INDICATIONS FOR PROCEDURE: Left lower quadrant and right lower quadrant abdominal pain as well as constipation, hematochezia, and abnormal weight loss. These indications are from an office visit in August of 2015. Currently, she states that she has a little bit of left lower quadrant pain and her bowels are regular. Previous to her recent improvement in bowels, she has been somewhat constipation. SCOPE: Whisk video pediatric colonoscope. MEDICATIONS: Propofol 550 mg IV per anesthesia. ESTIMATED BLOOD LOSS: None. COMPLICATIONS: None. FINDINGS: Informed consent was given. The patient was made comfortable with the above medication. After reaching an adequate level of sedation by slow IV push, the patient was placed on her left side. A digital rectal examination was performed and was normal. The endoscope was then advanced under direct visualization through the rectum to the ascending colon. The cecum could not be reached due to [id number] visualization in the ascending colon due to an inadequate prep. The scope was slowly withdrawn and the mucosa was carefully examined. From what mucosa could be visualized, there were no polyps or other abnormalities. There were no diverticula visualized. Retroflexion was not performed in the rectum. The scope was withdrawn from the patient. The patient tolerated the procedure well, and there were no complications. IMPRESSION: Incomplete colonoscopy due to an inadequate prep. PLAN AND RECOMMENDATIONS: 1. Discharge home when recovery parameters are met. 2. High fiber diet. 3. Continue current medications. 4. Anticipate the patient's left lower quadrant pain is secondary to constipation and slow transit of stools possibly related to nerve damage, which could complicate this condition. I would recommend maintaining high fiber diet and supplementing her diet with Metamucil 1-2 tablespoons daily. We can plan for a repeat colonoscopy at the patient's convenience. She will need a prolonged preparation consisting of 2 days of clear liquids and possibly a double prep as the split-dose Suprep had no effect on her bowel. TRANSINT:[id number] Voice Confirmation ID: [id number] DOCUMENT ID: [id number] OPERATIVE REPORT [id number] GAGE URRUTIA GERMANIA MUHAMMAD DO at 1353 CC: [id number] DICTATION DATE: 03/04/17 1421 ASSOCIATE MEDICAL DIRECTOR: 03/04/[address] [facility] 03/04/17 [facility] [address] [place] [address]
== END 2017-03-04 15:20 | disposition home or self-care (01) ==
LOC: D.OPS 10:26
PROVIDERS: Anesthesiology
DX: R10.9 Unspecified abdominal pain (principal); K92.1 Melena; I10 Essential (primary) hypertension; J44.9 Chronic obstructive pulmonary disease, unspecified; J45.909 Unspecified asthma, uncomplicated; Z01.812 Encounter for preprocedural laboratory examination

== ENCOUNTER 2017-04-20 17:42 | Emergency (ER) | payer MEDICAID ==
[2017-04-20 18:27] LABS: BASOPHILS 0.1 % (0-2); EOSINOPHILS 2.3 % (0-7); HEMATOCRIT 39.7 % (36.0-48.0); HEMOGLOBIN 13.4 g/dL (12-16); IMMATURE GRANULOCYTES 0.1 % (0-5); LYMPHOCYTES 36.5 % (15-50); MCH 30.2 pg (26.0-34.0); MCHC 33.8 g/dL (31.0-37.0); MCV 89.4 fL (80.0-100.0); MEAN PLATELET VOLUME 9.9 fL (7.4-10.4); MONOCYTES 9.8 % (2-11); NEUTROPHILS 51.2 % (40-80); PLATELET COUNT 264 10x3/uL (130-400); RBC 4.44 10x6/uL (4.00-5.40); RDW 14.1 % (11.5-14.5); WBC 7.4 10x3/uL (4.8-10.8)
[2017-04-20 18:44] LABS: ALBUMIN 3.7 g/dL (3.4-5.0); ALKALINE PHOSPHATASE 71 U/L (46-116); ALT (SGPT) 23 U/L (10-68); BILIRUBIN - TOTAL 0.28 mg/dL (0.2-1.3); CALC OSMOLALITY 276 mosm/kg (275-300); CALCIUM 9.4 mg/dL (8.5-10.1); CARBON DIOXIDE 28.9 mmol/L (21.0-32.0); CHLORIDE - SERUM 100 mmol/L (98-107); CREATININE - SERUM 0.6 mg/dL (0.6-1.3); GLUCOSE 103 mg/dL (74-106); POTASSIUM - SERUM 3.1 mmol/L (3.5-5.1); PROTEIN - SERUM 7.7 g/dL (6.4-8.2); SODIUM 137 mmol/L (136-145); UREA NITROGEN 20 mg/dL (7-18); eGFR NON AFRICAN AMERICAN > 90 mL/min (90-120)
[2017-04-20 18:55] LABS: APPEARANCE HAZY (CLEAR); BACTERIA MODERATE /hpf (NONE SEEN); BILIRUBIN NEGATIVE (NEGATIVE); COLOR YELLOW (YELLOW); GLUCOSE NEGATIVE (NEGATIVE); KETONE NEGATIVE (NEGATIVE); MUCUS <1+ /lpf (NONE SEEN); NITRITE POSITIVE (NEGATIVE); PROTEIN NEGATIVE (NEGATIVE); RED CELLS - URINE 0-5 /hpf (0-5); SPECIFIC GRAVITY 1.015 (1.005-1.020); UROBILINOGEN NORMAL (NORMAL)
== END 2017-04-20 21:18 | disposition home or self-care (01) ==
LOC: D.ER 17:42
PROVIDERS: Emergency Medicine
DX: R10.32 Left lower quadrant pain (principal); N39.0 Urinary tract infection, site not specified; E87.6 Hypokalemia; G82.20 Paraplegia, unspecified; F17.200 Nicotine dependence, unspecified, uncomplicated

== ENCOUNTER → 2017-04-29 10:27 | Outpatient (CLI) | payer MEDICAID | END | disposition home or self-care (01) | LOC: D.RAD 10:27 | DX: K59.01 Slow transit constipation (principal) ==

== ENCOUNTER 2017-07-09 13:18 | Emergency (ER) | payer MEDICAID ==
[2017-07-09 13:51] LABS: BASOPHILS 0.2 % (0-2); EOSINOPHILS 2.7 % (0-7); HEMOGLOBIN 13.8 g/dL (12-16); IMMATURE GRANULOCYTES 0.2 % (0-5); LYMPHOCYTES 33.8 % (15-50); MCH 30.3 pg (26.0-34.0); MCHC 32.9 g/dL (31.0-37.0); MCV 92.3 fL (80.0-100.0); MEAN PLATELET VOLUME 10.3 fL (7.4-10.4); MONOCYTES 9.5 % (2-11); NEUTROPHILS 53.6 % (40-80); PLATELET COUNT 255 10x3/uL (130-400); RBC 4.55 10x6/uL (4.00-5.40); WBC 4.7 10x3/uL (4.8-10.8)
[2017-07-09 14:16] LABS: ALBUMIN 3.9 g/dL (3.4-5.0); ALKALINE PHOSPHATASE 75 U/L (46-116); ALT (SGPT) 24 U/L (10-68); BILIRUBIN - TOTAL 0.56 mg/dL (0.2-1.3); CALC OSMOLALITY 278 mosm/kg (275-300); CALCIUM 9.4 mg/dL (8.5-10.1); CARBON DIOXIDE 30.9 mmol/L (21.0-32.0); CHLORIDE - SERUM 101 mmol/L (98-107); CREATININE - SERUM 0.5 mg/dL (0.6-1.3); GLUCOSE 100 mg/dL (74-106); POTASSIUM - SERUM 3.6 mmol/L (3.5-5.1); PROTEIN - SERUM 7.4 g/dL (6.4-8.2); SODIUM 140 mmol/L (136-145); UREA NITROGEN 12 mg/dL (7-18); eGFR NON AFRICAN AMERICAN > 90 mL/min (90-120)
[2017-07-09 14:42] LABS: APPEARANCE CLEAR (CLEAR); BILIRUBIN NEGATIVE (NEGATIVE); COLOR YELLOW (YELLOW); GLUCOSE NEGATIVE (NEGATIVE); KETONE NEGATIVE (NEGATIVE); NITRITE NEGATIVE (NEGATIVE); PROTEIN NEGATIVE (NEGATIVE); UROBILINOGEN NORMAL (NORMAL)
[2017-07-09 14:43] LABS: BACTERIA FEW /hpf (NONE SEEN)
== END 2017-07-09 16:20 | disposition home or self-care (01) ==
LOC: D.ER 13:18
PROVIDERS: Emergency Medicine
DX: K59.00 Constipation, unspecified (principal); F17.200 Nicotine dependence, unspecified, uncomplicated

== ENCOUNTER → 2017-11-02 08:36 | Outpatient (CLI) | payer MEDICAID ==
[~2017-11-02 08:36] MED LIST changes: +ATIVAN1 MG PO; +BENTYL 20 MG TA20 MG PO; +HYDROCODONE-APA1 TAB PO; -NORCO 5/325 TAB1 TA1 PO
== END | disposition home or self-care (01) ==
LOC: D.CT 08:30
DX: R93.8 Abnormal findings on diagnostic imaging of other specified body structures (principal)

== ENCOUNTER 2017-11-04 10:59 | Day surgery (SDC) | payer MEDICAID ==
[~2017-11-04] VITALS: Ht 160 cm; Wt 45.0 kg
--- NOTE | ~2017-11-04 | OP ---
PATIENT NAME: GAGE URRUTIA MEDICAL RECORD: [id number] :56 LOCATION:D.OPS ADMISSION DATE: SURGEON: GERMANIA MUHAMMAD DO DATE OF OPERATION: 11/04/2017 PROCEDURE: Colonoscopy with polypectomy and biopsies. INDICATIONS FOR PROCEDURE: Fecal occult blood positive. SCOPE: Olympus video pediatric colonoscope. MEDICATIONS: Propofol 500 mg IV per anesthesia. WITHDRAWAL TIME: 19 minutes. ESTIMATED BLOOD LOSS: Minimal. COMPLICATIONS: None. FINDINGS: Informed consent was given. The patient was made comfortable with the above medication. After reaching an adequate level of sedation by slow IV push, the patient was placed on her left side. A digital rectal examination was performed. The examination itself was normal involving the rectum, but there was a wound superior to the rectum that was open. There did not appear to be active infection involving the wound. The endoscope was advanced under direct visualization through the rectum to the cecum, confirmed by the presence of the appendiceal orifice and ileocecal valve. The endoscope was slowly withdrawn and mucosa was carefully examined. The prep quality was good. There were multiple polyps visualized on today's examination. The first was located in the transverse colon. There was a benign appearing sessile polyp, which measured approximately 4 mm in diameter. It was removed using hot forceps in 1 piece and completely retrieved. The next polyp was located in the descending colon. It was a benign appearing sessile polyp, which measured approximately 8-9 mm in diameter. It was removed using a hot snare in 1 piece and completely retrieved. In the sigmoid colon, there were two separate polyps. The first was a benign appearing sessile polyp, which measured approximately 3 mm in diameter. It was removed using hot forceps in 1 piece and completely retrieved. A second polyp was a larger polyp which measured approximately 6-7 mm in diameter. It was removed using hot snare in 1 piece and completely retrieved. On retroflexion in the rectum, there was a polypoid lesion, which could be an inflammatory type polyp. It was removed using hot forceps in 1 piece and completely retrieved. There were no diverticula visualized on today's examination. In the rectum, there were some inflammatory changes consisting of some erythema and some granularity as well as a few small ulcerations which could be related to constipation as they appeared consistent with stercoral injury. A few biopsies were taken with cold forceps in the rectum. Also, on retroflexion, there was visualization of grade I nonbleeding internal hemorrhoids. The endoscope was withdrawn from the patient. The patient tolerated the procedure well and there were no complications. IMPRESSION: 1. Multiple polyps as described above, removed using a combination of hot forceps and a hot snare. 2. 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 3. Small internal hemorrhoids. OPERATIVE REPORT [id number] GAGE URRUTIA PLAN AND RECOMMENDATIONS: 1. Discharge home when recovery parameters are met. 2. Follow up biopsy specimen results. 3. High fiber diet. 4. Continue current medications including supplementation of diet with Metamucil 2 tablespoons daily, MiraLax daily. 5. We will provide a prescription for Linzess 145 mcg daily. 6. Recommend a repeat colonoscopy in 2-3 years for continued surveillance of polyps. TRANSINT:[id number] Voice Confirmation ID: [id number] DOCUMENT ID: [id number] GERMANIA MUHAMMAD DO at 1326 CC: [id number] DICTATION DATE: 11/04/17 1502 LOCKSTITCH SLEEVE SETTER: 11/04/17 [address] [facility] 11/04/17 [place] [id number] [place] [address]
[~2017-11-04 10:59] MED LIST changes: -ATIVAN1 MG PO; -BENTYL 20 MG TA20 MG PO
[2017-11-04 11:28] LABS: HEMATOCRIT 37.9 % (36.0-48.0); HEMOGLOBIN 12.5 g/dL (12-16); MCV 90.9 fL (80.0-100.0); MEAN PLATELET VOLUME 10.3 fL (7.4-10.4); RBC 4.17 10x6/uL (4.00-5.40); RDW 14.1 % (11.5-14.5); WBC 6.2 10x3/uL (4.8-10.8)
[2017-11-04] MEDS ORDERED: ATIVAN1 MG PO (12:55)
[2017-11-04 13:03] VITALS: Ht 160 cm; Wt 45.0 kg
== END 2017-11-04 16:10 | disposition home or self-care (01) ==
LOC: D.OPS 10:59
PROVIDERS: Anesthesiology
DX: D12.4 Benign neoplasm of descending colon (principal); D12.5 Benign neoplasm of sigmoid colon; D12.3 Benign neoplasm of transverse colon; K62.89 Other specified diseases of anus and rectum; D12.8 Benign neoplasm of rectum; K64.0 First degree hemorrhoids; Z01.812 Encounter for preprocedural laboratory examination

== ENCOUNTER 2017-12-11 16:55 | Emergency (ER) | payer MEDICAID ==
[~2017-12-11] VITALS: Ht 160 cm; Wt 45.0 kg
[~2017-12-11 16:55] MED LIST changes: +ATIVAN1 MG PO
[2017-12-11 17:15] VITALS: Ht 160 cm; Wt 45.0 kg
[2017-12-11 18:16] LABS: ALBUMIN 3.8 g/dL (3.4-5.0); ALKALINE PHOSPHATASE 75 U/L (46-116); ALT (SGPT) 26 U/L (10-68); AMYLASE - SERUM 55 U/L (25-115); BASOPHILS 0.2 % (0-2); BILIRUBIN - TOTAL 0.37 mg/dL (0.2-1.3); CALC OSMOLALITY 282 mosm/kg (275-300); CALCIUM 8.9 mg/dL (8.5-10.1); CARBON DIOXIDE 27.3 mmol/L (21.0-32.0); CHLORIDE - SERUM 104 mmol/L (98-107); CREATININE - SERUM 0.5 mg/dL (0.6-1.3); EOSINOPHILS 1.5 % (0-7); GLUCOSE 97 mg/dL (74-106); HEMATOCRIT 41.3 % (36.0-48.0); HEMOGLOBIN 13.8 g/dL (12-16); IMMATURE GRANULOCYTES 0.2 % (0-5); LIPASE 178 U/L (73-393); LYMPHOCYTES 35.7 % (15-50); MCH 29.9 pg (26.0-34.0); MCHC 33.4 g/dL (31.0-37.0); MCV 89.4 fL (80.0-100.0); MEAN PLATELET VOLUME 11.1 fL (7.4-10.4); NEUTROPHILS 53.4 % (40-80); PLATELET COUNT 217 10x3/uL (130-400); POTASSIUM - SERUM 3.5 mmol/L (3.5-5.1); PROTEIN - SERUM 7.1 g/dL (6.4-8.2); RBC 4.62 10x6/uL (4.00-5.40); RDW 14.2 % (11.5-14.5); SODIUM 141 mmol/L (136-145); UREA NITROGEN 17 mg/dL (7-18); WBC 6.1 10x3/uL (4.8-10.8); eGFR NON AFRICAN AMERICAN > 90 mL/min (90-120)
[2017-12-11 18:51] LABS: APPEARANCE HAZY (CLEAR); BILIRUBIN NEGATIVE (NEGATIVE); COLOR YELLOW (YELLOW); GLUCOSE NEGATIVE (NEGATIVE); KETONE NEGATIVE (NEGATIVE); NITRITE NEGATIVE (NEGATIVE); PROTEIN NEGATIVE (NEGATIVE); UROBILINOGEN NORMAL (NORMAL)
[2017-12-11 18:52] LABS: BACTERIA MANY /hpf (NONE SEEN); EPITHELIAL CELLS 0-5 /hpf (0-5); WHITE CELLS - URINE 0-5 /hpf (0-5)
[2017-12-11] MEDS ORDERED: BENTYL 20 MG TA20 MG PO (22:11)
[2017-12-11] MEDS ORDERED: MACROBID100 MG PO (22:11)
[2017-12-11 22:20] VITALS: BP 132/79
== END 2017-12-11 22:20 | disposition home or self-care (01) ==
LOC: D.ER 16:55
PROVIDERS: Family Medicine
DX: N39.0 Urinary tract infection, site not specified (principal); R10.9 Unspecified abdominal pain; I10 Essential (primary) hypertension; J44.9 Chronic obstructive pulmonary disease, unspecified; F17.200 Nicotine dependence, unspecified, uncomplicated

== ENCOUNTER 2018-04-24 08:30 | Emergency (ER) | payer MEDICAID ==
[2018-04-24 09:08] LABS: UDS - AMPHET NEGATIVE QUAL (NEGATIVE); UDS - BARB NEGATIVE QUAL (NEGATIVE); UDS - BENZO POSITIVE QUAL (NEGATIVE); UDS - COCAINE NEGATIVE QUAL (NEGATIVE); UDS - OPIATE POSITIVE QUAL (NEGATIVE); UDS - PCP NEGATIVE QUAL (NEGATIVE); UDS - THC POSITIVE QUAL (NEGATIVE)
[2018-04-24 09:13] LABS: BASOPHILS 0.2 % (0-2); EOSINOPHILS 0 % (0-7); HEMOGLOBIN 17.8 g/dL (12-16); IMMATURE GRANULOCYTES 0.3 % (0-5); MCH 31.1 pg (26.0-34.0); MCHC 34.2 g/dL (31.0-37.0); MCV 90.9 fL (80.0-100.0); MEAN PLATELET VOLUME 11.2 fL (7.4-10.4); MONOCYTES 6.8 % (2-11); NEUTROPHILS 76.7 % (40-80); RBC 5.72 10x6/uL (4.00-5.40); RDW 14.7 % (11.5-14.5); WBC 9.7 10x3/uL (4.8-10.8)
[2018-04-24 09:14] LABS: PLATELET COUNT 270 10x3/uL (130-400)
[2018-04-24 09:27] LABS: APPEARANCE CLOUDY (CLEAR); BILIRUBIN NEGATIVE (NEGATIVE); COLOR DK YELLOW (YELLOW); GLUCOSE NEGATIVE (NEGATIVE); KETONE NEGATIVE (NEGATIVE); NITRITE NEGATIVE (NEGATIVE); PROTEIN 1+ mg/dL (NEGATIVE); UROBILINOGEN NORMAL (NORMAL)
[2018-04-24 09:29] LABS: BACTERIA MODERATE /hpf (NONE SEEN); EPITHELIAL CELLS 0-5 /hpf (0-5); RED CELLS - URINE 0-5 /hpf (0-5); WHITE CELLS - URINE 0-5 /hpf (0-5)
[2018-04-24 10:10] LABS: ALBUMIN 3.7 g/dL (3.4-5.0); ALKALINE PHOSPHATASE 160 U/L (46-116); ALT (SGPT) 21 U/L (10-68); CALC OSMOLALITY 296 mosm/kg (275-300); CALCIUM 9.7 mg/dL (8.5-10.1); CARBON DIOXIDE 28.7 mmol/L (21.0-32.0); CHLORIDE - SERUM 100 mmol/L (98-107); CREATININE - SERUM 1.3 mg/dL (0.6-1.3); GLUCOSE 127 mg/dL (74-106); PROTEIN - SERUM 7.4 g/dL (6.4-8.2); SODIUM 142 mmol/L (136-145); UREA NITROGEN 46 mg/dL (7-18); eGFR NON AFRICAN AMERICAN 44 mL/min (90-120)
[2018-04-24 10:14] LABS: LIPASE 77 U/L (73-393); TROPONIN-I < 0.017 ng/mL (0.000-0.060)
== END 2018-04-24 11:54 | disposition home or self-care (01) ==
LOC: D.ER 08:30
PROVIDERS: Family Medicine
DX: R11.10 Vomiting, unspecified (principal); R74.8 Abnormal levels of other serum enzymes; R19.7 Diarrhea, unspecified; R10.32 Left lower quadrant pain; I10 Essential (primary) hypertension

== ENCOUNTER 2020-02-02 12:27 | Emergency (ER) | payer MEDICAID ==
[~2020-02-02] VITALS: Ht 160 cm; Wt 43.2 kg
[~2020-02-02 12:27] MED LIST changes: +BENTYL 20 MG TA20 MG PO; +LOMOTIL 2.5-0.1 EAC1 PO; +ZOFRAN ODT4 MG/UDTAB PO
[2020-02-02 12:30] VITALS: Ht 160 cm; Wt 43.2 kg
[2020-02-02 13:46] LABS: BASOPHILS 0.2 % (0-2); EOSINOPHILS 1.3 % (0-7); HEMOGLOBIN 12.9 g/dL (12-16); IMMATURE GRANULOCYTES 0.1 % (0-5); LYMPHOCYTES 22.2 % (15-50); MCH 29.9 pg (26.0-34.0); MCHC 32.3 g/dL (31.0-37.0); MCV 92.8 fL (80.0-100.0); MEAN PLATELET VOLUME 10.1 fL (7.4-10.4); MONOCYTES 12.1 % (2-11); NEUTROPHILS 64.1 % (40-80); PLATELET COUNT 285 10x3/uL (130-400); RBC 4.31 10x6/uL (4.00-5.40); RDW 14.2 % (11.5-14.5); WBC 8.4 10x3/uL (4.8-10.8)
[2020-02-02 13:56] LABS: CALC OSMOLALITY 277 mosm/kg (275-300); CALCIUM 9.7 mg/dL (8.5-10.1); CARBON DIOXIDE 27.3 mmol/L (21.0-32.0); CHLORIDE - SERUM 101 mmol/L (98-107); CREATININE - SERUM 0.8 mg/dL (0.6-1.3); GLUCOSE 87 mg/dL (74-106); POTASSIUM - SERUM 3.3 mmol/L (3.5-5.1); SODIUM 139 mmol/L (136-145); UREA NITROGEN 16 mg/dL (7-18); eGFR NON AFRICAN AMERICAN 77 mL/min (90-120)
[2020-02-02 14:02] LABS: ALBUMIN 3.7 g/dL (3.4-5.0); ALKALINE PHOSPHATASE 74 U/L (30-120); ALT (SGPT) 21 U/L (10-68); BILIRUBIN - TOTAL 0.62 mg/dL (0.2-1.3); PROTEIN - SERUM 7.5 g/dL (6.4-8.2)
[2020-02-02] MEDS ORDERED: LEVAQUIN750 MG PO (16:36)
[2020-02-02 16:59] LABS: BACTERIA MANY /HPF (NONE SEEN)
[2020-02-02] MEDS ORDERED: HYDROCODON-ACE1 EA10 PO (17:25)
[2020-02-02 17:51] VITALS: BP 136/83
== END 2020-02-02 17:55 | disposition home or self-care (01) ==
LOC: D.ER 12:27
PROVIDERS: Family Medicine
DX: N12 Tubulo-interstitial nephritis, not specified as acute or chronic (principal); I10 Essential (primary) hypertension; J44.9 Chronic obstructive pulmonary disease, unspecified; Z72.0 Tobacco use; R10.30 Lower abdominal pain, unspecified; M54.5 Low back pain